=== PATIENT | male | born 1975 ===

== ENCOUNTER → 2018-07-01 22:13 | Outpatient (REF) | payer OTHER, SELFPAY ==
[2018-07-01 22:19] LABS: Bacteria Urine None Seen; WBC Urine None Seen (0-5/HPF)
[2018-07-01 22:37] LABS: Appearance Urine UA CLEAR; Bilirubin Urine UA NEGATIVE (NEGATIVE); Color Urine UA YELLOW; Glucose Urine UA NEGATIVE (Negative); Ketones Urine UA NEGATIVE (NEGATIVE); Leukocyte Esterase Urine UA NEGATIVE (NEGATIVE); Nitrite Urine UA NEGATIVE (Negative); Occult Blood Urine UA 1+ (Negative); Protein Urine UA NEGATIVE (Negative); Specific Gravity Urine UA 1.015 (1.000-1.035); Urobilinogen Urine UA 0.2 E.U./dL (0.2)
[2018-07-01 22:47] LABS: RBC Urine 0-1/HPF (0-5/HPF)
[2018-07-01 22:48] LABS: Culture Indicated Urine Cult Not Indicated
[2018-07-02 01:06] LABS: Add Manual Diff / Slide Review NO; Basophils Absolute Auto 100 /uL (0-100); Basophils Percent Auto 2.4 % (0-2); Eosinophils Absolute Auto 200 /uL (0-450); Eosinophils Percent Auto 6.5 % (2-4); Hematocrit 44.2 % (41-53); Hemoglobin 14.2 g/dL (13.5-17.5); Lymphocytes Absolute Auto 1200 /uL (1100-4500); Lymphocytes Percent Auto 46.4 % (25-40); Mean Corpuscular HGB Conc 32.2 % (30-36); Mean Corpuscular Hemoglobin 30.2 PG (26-34); Mean Corpuscular Volume 93.8 fL (80-100); Monocytes Absolute Auto 200 /uL (0-900); Monocytes Percent Auto 7.4 % (3-14); Neutrophils Absolute Auto 900 /uL (1500-7000); Neutrophils Percent Auto 37.3 % (50-75); Platelet Count 293 X10^3/uL (150-400); Red Blood Cell Count 4.71 X10^6/uL (4.5-5.9); Red Cell Distribution Width 14.3 % (11.6-14.8); White Blood Cell Count 2.5 X10^3/uL (4.5-11.0)
[2018-07-02 02:05] LABS: Alanine Aminotransferase 38 IU/L (21-72); Albumin 4.6 g/dL (3.5-5.0); Albumin Globulin Ratio 1.4 (1.0-2.8); Alkaline Phosphatase 30 U/L (38-126); Aspartate Aminotransferase 30 IU/L (17-59); BUN Creatinine Ratio 11.8 (6-22); Bilirubin Total 0.5 mg/dL (0.2-1.3); Blood Urea Nitrogen 13 mg/dL (9-20); Calcium 9.8 mg/dL (8.4-10.2); Carbon Dioxide 28 mmol/L (22-32); Chloride 101 mmol/L (98-107); Cholesterol 283 mg/dL (140-199); Estimated Glomerular Filt Rate > 60.0 mL/min (>60); Globulin 3.3 g/dL (1.7-4.1); Glucose 90 mg/dL (70-100); HDL Cholesterol 61 mg/dL (40-60); HEMOLYSIS < 15 (0-50); LDL Cholesterol Calculated 212 mg/dL (<100); Potassium 4.9 mmol/L (3.4-5.1); Sodium 140 mmol/L (137-145); Total Protein 7.9 g/dL (6.3-8.2); Triglycerides 50 mg/dL (35-150)
[2018-07-02 02:26] LABS: Free T3, Triiodothyronine Free 3.14 pg/mL (2.77-5.27); Free T4, Direct Thyroxine 0.93 ng/dL (0.78-2.19)
[2018-07-02 02:37] LABS: Carcinoembryonic Antigen 3.3 ng/mL (0.1-3.0); Cortisol Random 7.23 ug/dL
[2018-07-02 02:40] LABS: Thyroid Stimulating Hormone 1.44 uIU/mL (0.47-4.68)
[2018-07-06 03:51] LABS: Testosterone Total 773 ng/dL (250-1100)
[2018-07-06 14:57] LABS: Dehydroepiandrosterone Sulfate 101 mcg/dL (70-495)
[2018-07-06 15:33] LABS: Anti Thyroglobulin Antibody < 1 IU/mL (< 2); Thyroid Peroxidase Antibodies 1 IU/mL (< 9)
[2018-07-06 16:21] LABS: PSA, Total 0.3 ng/mL (< 4.1)
== END ==
LOC: LAB 22:13
PROVIDERS: Visit Provider Acupuncturist
DX: N41.1 Chronic prostatitis (principal); R03.0 Elevated blood-pressure reading, without diagnosis of hypertension; R35.1 Nocturia; K76.1 Chronic passive congestion of liver
CPT/HCPCS: 36415; 80053; 80061; 81001; 82378; 82533; 82627; 84153; 84154; 84402; 84403; 84439; 84443; 84481; 85025; 86376; 86800